=== PATIENT | female | born 1995 | race Asian ===

== ENCOUNTER 2016-11-25 13:06 | Emergency (ER) | payer OTHER ==
[2016-11-25 13:21] VITALS: BP 108/71
--- NOTE | 2016-11-25 13:56 | UC ---
Abdominal Pain Female HPI - HPI Summary HPI Summary: PERIOD FOUR DAYS AGO; BEGAN HAVING (RLQ) ABDOMINAL PAIN THREE DAYS AGO. NO FEVER. STILL HAS APPENDIX. NO HISTORY OF KNOWN OVARIAN CYSTS. HAD SMALL EPIDODE OF LOW BACK PAIN FOUR DAYS AGO. (RLQ) ABDOMINAL PAIN WORSENING TODAY. 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 Negative: Diaphoresis, Fever, Cough, Constipation, Blood in Stool, Urinary Symptoms, Decreased Appetite, Vaginal Bleeding, Vomiting, Diarrhea - Risk Factors Ectopic Risk Factor: Negative Allergies/Adverse Reactions: Allergies Allergy/AdvReac Type Severity Reaction Status Date / Time No Known Allergies Allergy Verified 11/25/16 13:21 Home Medications: Home Medications Desogestrel & Ethinyl Estradio [Juleber 0.15-30 mg-Mcg] 1 tab PO DAILY 11/25/16 [History Confirmed 11/25/16] PMH/Surg Hx/FS Hx/Imm Hx Previously Healthy: Yes - Surgical History Surgical History: None - Family History Known Family History: Negative: Renal Disease - Social History Occupation: Student Lives: Alone Alcohol Use: Occasionally Substance Use Type: None Smoking Status (MU): Never Smoked Tobacco Review of Systems Constitutional: Negative Skin: Negative Eyes: Negative ENT: Negative Respiratory: Negative Cardiovascular: Negative Gastrointestinal: Abdominal Pain Genitourinary: Negative Motor: Negative Neurovascular: Negative Musculoskeletal: Negative Neurological: Negative Psychological: Negative All Other Systems Reviewed And Are Negative: Yes Physical Exam Triage Information Reviewed: Yes Appearance: Well-Appearing, No Pain Distress, Well-Nourished Vital Signs: Initial Vital Signs Temp 95.2 F 11/25/16 13:14 Pulse 108 11/25/16 13:14 Resp 16 11/25/16 13:14 BP 108/71 11/25/16 13:14 Pulse Ox 100 11/25/16 13:14 Vital Signs Reviewed: Yes Eye Exam: Normal ENT Exam: Normal ENT: Positive: Normal ENT inspection, TMs normal Dental Exam: Normal Neck exam: Normal Neck: Positive: Supple, Nontender, No Lymphadenopathy Respiratory Exam: Normal Respiratory: Positive: Chest non-tender, Lungs clear, Normal breath sounds, No respiratory distress, No accessory muscle use Cardiovascular Exam: Normal Cardiovascular: Positive: RRR, No Murmur, Pulses Normal Abdomen Description: Positive: No Organomegaly, Soft, McBurney's Point Tenderness. Negative: Nontender - RLQ, CVA Tenderness (R), CVA Tenderness (L) Musculoskeletal Exam: Normal Neurological Exam: Normal Psychological Exam: Normal Skin Exam: Normal Abd Pain Female Course/Dx - Course Course Of Treatment: PATIENT REFUSED AMBULANCE AND ELECTED TO GO TO EMERGENCY DEPARTMENT BY PRIVATE CAR. - Differential Dx/Diagnosis Differential Diagnosis: Appendicitis, Gall Bladder Disease, Ovarian Cyst, Pelvic Inflammatory Disease, Urinary Tract Infection Provider Diagnoses: RLQ ABDOMINAL PAIN - Physician Notification/Consults Instructed by Provider To: MD Will See In ED Discharge - Discharge Plan Condition: Stable Disposition: TRANS HIGHER LVL OF CARE FAC Patient Education Materials: Abdominal Pain (ED) Referrals: [facility] [place] PHYSICIAN REFERRAL [Outside] No Primary Care Phys,NOPCP [Primary Care Provider] - Additional Instructions: YOUR URINE TEST WAS NEGATIVE FOR LEUKOCYTES AND NEGATIVE FOR . YOUR ( RLQ) ABDOMINAL PAIN REQUIRES A HIGHER LEVEL OF EVALUATION. YOU HAVE REFUSED THE OFFER OF AMBULANCE TRANSPORT AND HAVE ELECTED TO GO TO THE EMERGENCY DEPARTMENT BY PRIVATE CAR. YOU ARE ADVISED TO PROCEED SAFELY, BUT DIRECTLY TO THE EMERGENCY DEPARTMENT FOR CONTINUED EVALUATION.
== END 2016-11-25 13:49 | disposition short-term general hospital (02) ==
LOC: UCEAST 13:06
DX: R10.31 Right lower quadrant pain (principal); R11.0 Nausea; Z32.02 Encounter for pregnancy test, result negative
CPT/HCPCS: 81003; 84702; 99201; G0463

== ENCOUNTER 2016-11-25 14:06 | Emergency (ER) | payer OTHER ==
[2016-11-25] MEDS ORDERED: Ondansetron INJ* 2 MG/ML VIAL IV ONE (15:46)
[2016-11-25] MEDS ORDERED: Acetaminophen TAB* 325 MG PO ONE ×2 (15:46→20:53)
[2016-11-25 16:38] LABS: Hematocrit 41 % (35-47); Mean Corpuscular HGB Conc 34 g/dl (31-36); Mean Corpuscular Hemoglobin 30 pg (27-31); Mean Corpuscular Volume 89 fL (80-97); Mean Platelet Volume 8 um3 (7.4-10.4); Red Cell Distribution Width 13 % (10.5-15); White Blood Count 9.9 10^3/ul (3.5-10.8)
[2016-11-25 16:53] LABS: ALT 8 U/L (7-52); AST 15 U/L (13-39); Albumin 4.3 g/dL (3.2-5.2); Alkaline Phosphatase 56 U/L (34-104); Anion Gap 10 mmol/L (2-11); BUN/Creatinine Ratio 13.3 (8-20); Blood Urea Nitrogen 8 mg/dL (6-24); C Reactive Protein 118.33 mg/L (< 5.00); CO2 Carbon Dioxide 23 mmol/L (22-32); Calcium 9.6 mg/dL (8.6-10.3); Chloride 102 mmol/L (101-111); EGFR African American 162.3 (>60); EGFR Non-African American 126.2 (>60); Globulin 3.4 g/dL (2-4); Glucose 100 mg/dL (70-100); Lipase 16 U/L (11.0-82.0); Potassium 3.8 mmol/L (3.5-5.0); Sodium 135 mmol/L (133-145); Total Protein 7.7 g/dL (6.4-8.9)
[2016-11-25 17:18] LABS: Urine Bilirubin Negative (Negative); Urine Glucose Negative (Negative); Urine Nitrite Negative (Negative)
[2016-11-25 17:19] LABS: Urine Bacteria Absent (Absent)
[2016-11-25] MEDS ORDERED: Iohexol 300* (CONTRAST) 10 ML SDV IV ONE (17:30)
--- NOTE | 2016-11-25 19:17 | RAD ---
INDICATION: RIGHT lower quadrant pain and tenderness. Hematuria. Currently menstruating. COMPARISON: No relevant prior exams available on the [facility] PACS. TECHNIQUE: Multidetector CT images were obtained from the lung bases to the ischial tuberosities with 76 mL Omnipaque 300 IV and oral contrast. Multiplanar reformation. REPORT: Unremarkable visualized inferior thorax. The liver, gallbladder, pancreas, and spleen are unremarkable. No CT abnormality of the upper GI. The distal approximate 7 cm of the ileum extending to the ileocecal valve is remarkable for mild mural thickening with extension to involve the medial aspect of the cecum.. No associated perienteric inflammatory change. Unremarkable infra cecal appendix. No additional regions of bowel mural thickening. Negative for ascites, free air, hernias. Normal adrenal glands. Unremarkable kidneys with symmetric nephrograms and pyelograms. Unremarkable nondilated ureters and partially distended urinary bladder as well as the retroverted uterus and adnexal regions. Multiple RIGHT lower quadrant mesenteric lymph nodes measuring up to 0.8 cm short axis diameter. Unremarkable abdominal aorta and iliac arteries. Physiologic partial distention of the IVC. Negative for findings of inflammatory arthropathy at the sacroiliac joints or lumbar sacral spine. No suspicious osseous lesions within the [id number]. IMPRESSION: 1. Nonspecific mild mural thickening of the distal and terminal ileum as well as contiguous involvement of the cecum. Adjacent appendix is normal. Negative for resulting bowel obstruction. Negative for significant perienteric inflammatory change or perienteric abscess. Associated mildly prominent RIGHT lower quadrant lymph nodes. Consider infectious ileitis as well as inflammatory bowel disease. 2. Negative for ascites. 3. Negative for obstructive uropathy.
[2016-11-26 01:17] VITALS: BP 109/68
--- NOTE | 2016-11-26 07:17 | RAD ---
INDICATION: Right adnexal tenderness. COMPARISON: Comparison is made with a prior CT of the abdomen and pelvis from November 25, 2016. TECHNIQUE: Multiple real-time transvaginal images of the pelvis were obtained. FINDINGS: The uterus is retroverted and normal in size shape and echogenicity. The uterus measured 6.6 x 2.9 x 3.6 cm. The endometrial echo measured 0.6 cm in thickness. The right ovary measured 2.8 x 2.2 x 2.3 cm. The left ovary measured 3.8 x 2.6 x 1.8 cm. There is vascular flow within both ovaries. No free intraperitoneal fluid is seen. IMPRESSION: NEGATIVE EXAM.
--- NOTE | 2016-11-29 08:47 | ED ---
Salud Medina Thomas, scribed for Won Willett MD on 11/25/16 at 1550 . Abdominal Pain/Female <EricRadha - Last Filed: 11/25/16 21:40> - HPI Summary HPI Summary: The pt is a 21 y/o F referred from [facility] and c/o intermittent sharp RLQ pain that began yesterday at 08:00. The pt rates the pain 4/10. The pain is aggravated by crouching down and is alleviated by nothing. The patient has treated the pain with Naproxen yesterday but her pain was not relieved. Pt additionally c/o nausea, dizziness, and anorexia. Pt denies vomiting, dysuria, and hematuria. Her last meal was pancakes this AM at 09:00. She is on control and she has not missed any doses. She was at [facility] and had a UA there that was negative for . PMHx: previously healthy. PSHx: none. SHx: no smoking, occasional alcohol use, no illicit drug use. She is a student at [employer]. She is accompanied by her boyfriend. She is currently menstruating and her period began on 11/22/16. - History of Current Complaint Hx Obtained From: Patient, Family/Parer - boyfriend present Hx Last Menstrual Period: Currentlyt menstruating Onset/Duration: Sudden Onset, Lasting Days - onset yesterday at 08:00, Still Present Timing: Intermittent Episode Lasting Severity Currently: Moderate Pain Intensity: 4 Pain Scale Used: 0-10 Numeric Location: Discrete At: RLQ Aggravating Factor(s): Other: - Crouching Alleviating Factor(s): Nothing, Other: - NOT alleviated by Naproxen Associated Signs and Symptoms: Positive: Dizzy, Nausea, Other: - POS: anorexia; NEG: dysuria, hematuria. Negative: Fever, Vomiting <Won Willett - Last Filed: 11/25/16 23:23> - History of Current Complaint Chief Complaint: EDAbdPain Stated Complaint: RT SIDE ABDOM PAIN Time Seen by Provider: 11/25/16 15:28 Allergies/Adverse Reactions: Allergies Allergy/AdvReac Type Severity Reaction Status Date / Time No Known Allergies Allergy Verified 11/25/16 13:21 PMH/Surg Hx/FS Hx/Imm Hx Previously Healthy: No Endocrine/Hematology History: Denies: Hx Diabetes, Hx Thyroid Disease Cardiovascular History: Denies: Hx Hypertension Respiratory History: Denies: Hx Asthma, Hx Chronic Obstructive Pulmonary Disease (COPD) GI History: Denies: Hx Ulcer - Surgical History Surgery Procedure, Year, and Place: None. Infectious Disease History: No Infectious Disease History: Denies: Hx Hepatitis, Hx Human Immunodeficiency Virus (HIV), History Other Infectious Disease, Traveled Outside the [place] in Last 30 Days - Family History Known Family History: Negative: Renal Disease - Social History Alcohol Use: Occasionally Substance Use Type: Reports: None Smoking Status (MU): Never Smoked Tobacco <Won Willett - Last Filed: 11/25/16 23:23> Review of Systems Negative: Fever, Chills Negative: Erythema - eyes Negative: Sore Throat Negative: Chest Pain Negative: Shortness Of Breath, Cough Positive: Abdominal Pain - RLQ, onset yesterday, intermittent, Nausea, Other - POS: anorexia. Negative: Vomiting Negative: dysuria, hematuria Negative: Myalgia, Edema - leg Negative: Rash Neurological: Other - POS: dizziness All Other Systems Reviewed And Are Negative: Yes <Won Willett - Last Filed: 11/25/16 23:23> Physical Exam Vital Signs On Initial Exam: Initial Vitals Temp Pulse Resp BP Pulse Ox 97.6 F 105 14 136/70 99 11/25/16 14:11/25/16 14:09 11/25/16 14:09 11/25/16 14:09 11/25/16 14:09 Abdomen Description: Positive: Other: - PELVIC EXAM Vulva: clear and healthy - no lesions, no d/c Vaginal Canal: scant bloody d/c Cervix observed - os patent - no d/c Rt adnexal space w/ TTP - no mass palpated Lt adnexal space NTTP Neg CMT Performed by BENSON HORN <Radha Reyes - Last Filed: 11/25/16 21:40> - Summary Physical Exam Summary: Constitutional: Well-developed, Well-nourished, Alert. (-) Distressed Skin: Warm, Dry HENT: Normocephalic; Atraumatic Eyes: Conjunctiva normal Neck: Musculoskeletal ROM normal neck. (-) JVD, (-) Stridor, (-) Tracheal deviation Cardio: Rhythm regular, rate normal, Heart sounds normal; Intact distal pulses; The pedal pulses are 2+ and symmetric. Radial pulses are 2+ and symmetric. (-) Murmur Pulmonary/Chest wall: Effort normal. (-) Respiratory distress, (-) Wheezes, (-) Rales Abd: She has RLQ tendrness and R CVA tenderness. Soft, (-) Distension, (-) Guarding, (-) Rebound Musculoskeletal: (-) Edema Lymph: (-) Cervical adenopathy Neuro: Alert, Oriented x3 Psych: Mood and affect Normal Triage Information Reviewed: Yes Vital Signs On Initial Exam: Initial Vitals Temp Pulse Resp BP Pulse Ox 97.6 F 105 14 136/70 99 11/25/16 14:09 11/25/16 14:11/25/16 14:11/25/16 14:11/25/16 14:09 Vital Signs Reviewed: Yes <Won Willett - Last Filed: 11/25/16 23:23> Diagnostics - Vital Signs Vital Signs Temp Pulse Resp BP Pulse Ox 11/25/16 19:00 113 97 11/25/16 18:01 109 98 11/25/16 17:00 112 98 11/25/16 16:31 120 121/88 97 11/25/16 16:14 115 98 11/25/16 16:13 109/67 11/25/16 14:09 97.6 F 105 14 136/70 99 - Laboratory Lab Results: Lab Results 11/25/16 11/25/16 11/25/16 Range/Units 16:26 16:26 16:26 WBC 9.9 (3.5-10.8) 10^3/ul RBC 4.60 (4.0-5.4) 10^6/ul Hgb 14.0 (12.0-16.0) g/dl Hct 41 (35-47) % MCV 89 (80-97) fL MCH 30 (27-31) pg MCHC 34 (31-36) g/dl RDW 13 (10.5-15) % Plt Count 192 (150-450) 10^3/ul MPV 8 (7.4-10.4) um3 Neut % (Auto) 82.4 (38-83) % Lymph % (Auto) 10.1 L (25-47) % [place] % (Auto) 6.3 (1-9) % Eos % (Auto) 0.9 (0-6) % Baso % (Auto) 0.3 (0-2) % Absolute Neuts (auto) 8.2 H (1.5-7.7) 10^3/ul Absolute Lymphs (auto) 1.0 (1.0-4.8) 10^3/ul Absolute Monos (auto) 0.6 (0-0.8) 10^3/ul Absolute Eos (auto) 0.1 (0-0.6) 10^3/ul Absolute Basos (auto) 0 (0-0.2) 10^3/ul Absolute Nucleated RBC 0 10^3/ul Nucleated RBC % 0 Sodium 135 (133-145) mmol/L Potassium 3.8 (3.5-5.0) mmol/L Chloride 102 (101-111) mmol/L Carbon Dioxide 23 (22-32) mmol/L Anion Gap 10 (2-11) mmol/L BUN 8 (6-24) mg/dL Creatinine 0.60 (0.51-0.95) mg/dL Est GFR ( Amer) 162.3 (>60) Est GFR (Non-Af Amer) 126.2 (>60) BUN/Creatinine Ratio 13.3 (8-20) Glucose 100 (70-100) mg/dL Lactic Acid 0.8 (0.5-2.0) mmol/L Calcium 9.6 (8.6-10.3) mg/dL Total Bilirubin 0.40 (0.2-1.0) mg/dL AST 15 (13-39) U/L ALT 8 (7-52) U/L Alkaline Phosphatase 56 (34-104) U/L C-Reactive Protein 118.33 H (< 5.00) mg/L Total Protein 7.7 (6.4-8.9) g/dL Albumin 4.3 (3.2-5.2) g/dL Globulin 3.4 (2-4) g/dL Albumin/Globulin Ratio 1.3 (1-3) Lipase 16 (11.0-82.0) U/L Beta HCG, Quant < 0.60 mIU/mL Urine Color Urine Appearance Urine pH (5-9) Ur Specific [place] (1.010-1.030) Urine Protein (Negative) Urine Ketones (Negative) Urine Blood (Negative) Urine Nitrate (Negative) Urine Bilirubin (Negative) Urine Urobilinogen (Negative) Ur Leukocyte Esterase (Negative) Urine WBC (Auto) (Absent) Urine RBC (Auto) (Absent) Ur Squamous Epith Cells (Absent) Urine Bacteria (Absent) Urine Glucose (Negative) 11/25/16 Range/Units 16:52 WBC (3.5-10.8) 10^3/ul RBC (4.0-5.4) 10^6/ul Hgb (12.0-16.0) g/dl Hct (35-47) % MCV (80-97) fL MCH (27-31) pg MCHC (31-36) g/dl RDW (10.5-15) % Plt Count (150-450) 10^3/ul MPV (7.4-10.4) um3 Neut % (Auto) (38-83) % Lymph % (Auto) (25-47) % [place] % (Auto) (1-9) % Eos % (Auto) (0-6) % Baso % (Auto) (0-2) % Absolute Neuts (auto) (1.5-7.7) 10^3/ul Absolute Lymphs (auto) (1.0-4.8) 10^3/ul Absolute Monos (auto) (0-0.8) 10^3/ul Absolute Eos (auto) (0-0.6) 10^3/ul Absolute Basos (auto) (0-0.2) 10^3/ul Absolute Nucleated RBC 10^3/ul Nucleated RBC % Sodium (133-145) mmol/L Potassium (3.5-5.0) mmol/L Chloride (101-111) mmol/L Carbon Dioxide (22-32) mmol/L Anion Gap (2-11) mmol/L BUN (6-24) mg/dL Creatinine (0.51-0.95) mg/dL Est GFR ( Amer) (>60) Est GFR (Non-Af Amer) (>60) BUN/Creatinine Ratio (8-20) Glucose (70-100) mg/dL Lactic Acid (0.5-2.0) mmol/L Calcium (8.6-10.3) mg/dL Total Bilirubin (0.2-1.0) mg/dL AST (13-39) U/L ALT (7-52) U/L Alkaline Phosphatase (34-104) U/L C-Reactive Protein (< 5.00) mg/L Total Protein (6.4-8.9) g/dL Albumin (3.2-5.2) g/dL Globulin (2-4) g/dL Albumin/Globulin Ratio (1-3) Lipase (11.0-82.0) U/L Beta HCG, Quant mIU/mL Urine Color Straw Urine Appearance Clear Urine pH 5 (5-9) Ur Specific [place] 1.020 (1.010-1.030) Urine Protein 1+(30 mg/dl) H (Negative) Urine Ketones Negative (Negative) Urine Blood 1+ H (Negative) Urine Nitrate Negative (Negative) Urine Bilirubin Negative (Negative) Urine Urobilinogen Negative (Negative) Ur Leukocyte Esterase Negative (Negative) Urine WBC (Auto) Absent (Absent) Urine RBC (Auto) Trace(0-2/hpf) (Absent) Ur Squamous Epith Cells Present H (Absent) Urine Bacteria Absent (Absent) Urine Glucose Negative (Negative) Result Diagrams: 11/25/16 16:26 11/25/16 16:26 Lab Statement: Any lab studies that have been ordered have been reviewed, and results considered in the medical decision making process. <Radha Reyes - Last Filed: 11/25/16 21:40> - Vital Signs Vital Signs Temp Pulse Resp BP Pulse Ox 11/25/16 14:09 97.6 F 105 14 136/70 99 - Laboratory Result Diagrams: 11/25/16 16:26 11/25/16 16:26 Lab Statement: Any lab studies that have been ordered have been reviewed, and results considered in the medical decision making process. - CT CT Abd/Pel CT Interpretation: Positive (See Comments) - CT Abd/Pel shows 1. Nonspecific mild mural thickening of the distal and terminal ileum as well as contiguous involvement of the cecum. Adjacent appendix is normal. Negative for resulting bowel obstruction. Negative for significant perienteric inflammatory change or perienteric abscess. Associated mildly prominent RIGHT lower quadrant lymph nodes. Consider infectious ileitis as well as inflammatory bowel disease. 2. Negative for ascites. 3. Negative for obstructive uropathy. ED Physician has read this report and agrees. CT Interpretation Completed By: Radiologist - Additional Comments Diagnostic Additional Comments: US Pelvis/Transvaginal. Interpreted by radiologist. Impression: no ovarian torsion, color flow with appropriate arterial and venous waveforms, no free fluid, normal uterus, endometrial stripe complex 6cm thick. ED Physician has read this report and agrees. <Won Willett - Last Filed: 11/25/16 23:23> Re-Evaluation - Re-Evaluation First Eval Re-Evaluation Time: 19:38 Change: Unchanged Comment: The patient is still in pain. <Won Willett - Last Filed: 11/25/16 23:23> Abdominal Pain Fem Course/Dx <Radha Reyes - Last Filed: 11/25/16 21:40> - Course Course Of Treatment: The pt is a 21 y/o F referred from [facility] and c/o intermittent sharp RLQ pain that began yesterday at 08:00. The pt rates the pain 4/10. The pain is aggravated by crouching down and is alleviated by nothing. The patient has treated the pain with Naproxen yesterday but her pain was not relieved. Pt additionally c/o nausea, dizziness, and anorexia. Pt denies vomiting, dysuria, and hematuria. Her last meal was pancakes this AM at 09:00. She is on control and she has not missed any doses. She was at [facility] and had a UA there that was negative for . PMHx: previously healthy. PSHx: none. SHx: no smoking, occasional alcohol use, no illicit drug use. She is a student at [employer]. She is accompanied by her boyfriend. She is currently menstruating and her period began on 11/22/16. In the ED course the patient was given acetaminophen and Zofran. At re-evaluation at 19:37, the patient is still in pain. Bloodwork shows CRP 118.33. UA shows 1+ protein and 1 + blood. CT Abd/Pel shows 1. Nonspecific mild mural thickening of the distal and terminal ileum as well as contiguous involvement of the cecum. Adjacent appendix is normal. Negative for resulting bowel obstruction. Negative for significant perienteric inflammatory change or perienteric abscess. Associated mildly prominent RIGHT lower quadrant lymph nodes. Consider infectious ileitis as well as inflammatory bowel disease. 2. Negative for ascites. 3. Negative for obstructive uropathy. The patient will be signed out from Dr. Willett to Dr. Howe at shift change pending imaging. US Pelvis/Transvaginal reveals no ovarian torsion, color flow with appropriate arterial and venous waveforms, no free fluid, normal uterus, endometrial stripe complex 6cm thick. ED Physician has read this report and agrees. The patient is diagnosed with terminal lymphadenopathy and terminal ileitis. She will follow up with GI in 2-3 days. The patient has refused to take narcotic pain medication while in the ED up to this point, and I do not believe that she will take it if she is prescribed them. Therefore, she was instructed to take Tylenol as needed for the pain. She was given a school note as well. She will be discharged home and is stable. <Won Willett - Last Filed: 11/25/16 23:23> - Diagnoses Provider Diagnoses: Abdominal lymphadenopathy, Terminal ileitis Discharge <Radha Reyes - Last Filed: 11/25/16 21:40> <Won Willett - Last Filed: 11/25/16 23:23> - Discharge Plan Condition: Stable Disposition: HOME Patient Education Materials: Lymphadenopathy (ED) Forms: *School Release [facility] - Randall Perez MD [Medical Doctor] - 2 Days Additional Instructions: Follow up with Dr. Randall Perez, a obgyn specialist, in 2-3 days. Take Tylenol as needed for the pain. Return to the emergency department for new or worsening symptoms. The documentation as recorded by the Salud aburto Thomas accurately reflects the service I personally performed and the decisions made by me, Won Willett MD.
== END 2016-11-25 23:26 | disposition home or self-care (01) ==
LOC: ED 14:06
DX: R59.0 Localized enlarged lymph nodes (principal); K50.00 Crohn's disease of small intestine without complications
CPT/HCPCS: 36415; 74177; 76830; 80053; 81003; 81015; 83605; 83690; 84702; 85025; 86140; 87040; 96374; 96375; 99283; A9270-GY; J2405; Q9967

== ENCOUNTER 2017-06-02 08:15 | Emergency (ER) | payer OTHER ==
[2017-06-02 08:28] VITALS: BP 122/79
--- NOTE | 2017-06-02 08:43 | UC ---
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 with 3 days of sore throat doesn't believe she's had fevers but does report chills has been taking ibuprofen to manage the pain no cough nausea vomiting nasal drainage - History of Current Complaint Chief Complaint: UCGeneralIllness Stated Complaint: SORE THROAT Time Seen by Provider: 06/02/17 08:33 Hx Obtained From: Patient Hx Last Menstrual Period: Currentlyt menstruating ?: No Onset/Duration: Sudden Onset, Lasting Days - 3 Severity: Moderate Pain Intensity: 8 Pain Scale Used: 0-10 Numeric Cough: None Associated Signs & Symptoms: Positive: Negative - Allergies/Home Medications Allergies/Adverse Reactions: Allergies Allergy/AdvReac Type Severity Reaction Status Date / Time No Known Allergies Allergy Verified 06/02/17 08:28 PMH/Surg Hx/FS Hx/Imm Hx Previously Healthy: Yes - Surgical History Surgical History: None Surgery Procedure, Year, and Place: None. - Family History Known Family History: Negative: Renal Disease - Social History Occupation: Student Lives: Dormitory/Roommates Alcohol Use: Occasionally Substance Use Type: None Smoking Status (MU): Never Smoked Tobacco Review of Systems Constitutional: Chills Skin: Negative Eyes: Negative ENT: Sore Throat Respiratory: Negative Cardiovascular: Negative Gastrointestinal: Negative Genitourinary: Negative Motor: Negative Neurovascular: Negative Musculoskeletal: Negative Neurological: Negative Psychological: Negative Is Patient Immunocompromised?: No All Other Systems Reviewed And Are Negative: Yes Physical Exam Triage Information Reviewed: Yes Appearance: Well-Appearing, No Pain Distress, Well-Nourished Vital Signs: Initial Vital Signs Temp 97.3 F 06/02/17 08:25 Pulse 89 06/02/17 08:25 Resp 18 06/02/17 08:25 BP 122/79 06/02/17 08:25 Pulse Ox 100 06/02/17 08:25 Vital Signs Reviewed: Yes Eye Exam: Normal Eyes: Positive: Conjunctiva Clear ENT Exam: Normal ENT: Positive: Normal ENT inspection, Hearing grossly normal, Pharynx normal, TMs normal, Uvula midline. Negative: Nasal congestion, Nasal drainage, Tonsillar swelling, Tonsillar exudate, Trismus, Muffled voice, Hoarse voice, Dental tenderness, Sinus tenderness Dental Exam: Normal Neck exam: Normal Neck: Positive: Supple, Nontender, No Lymphadenopathy Respiratory Exam: Normal Respiratory: Positive: Chest non-tender, Lungs clear, Normal breath sounds, No respiratory distress, No accessory muscle use Cardiovascular Exam: Normal Cardiovascular: Positive: RRR, No Murmur, Pulses Normal, Brisk Capillary Refill Musculoskeletal Exam: Normal Musculoskeletal: Positive: Strength Intact, ROM Intact, No Edema Neurological Exam: Normal Neurological: Positive: Alert, Muscle Tone Normal Psychological Exam: Normal Skin Exam: Normal Diagnostics - Laboratory Diagnostic Studies Completed/Ordered: RST (-) Throat Pain/Nasal Course/Dx - Course Course Of Treatment: Rest increase fluids Tylenol ibuprofen throat sprays follow with [facility] when necessary - Differential Dx/Diagnosis Provider Diagnoses: Viral pharyngitis Discharge - Discharge Plan Condition: Stable Disposition: HOME Patient Education Materials: Pharyngitis (ED), Viral Syndrome (ED) Referrals: [facility] [Primary Care Provider] - If Needed
== END 2017-06-02 08:55 | disposition home or self-care (01) ==
LOC: UCEAST 08:15
DX: J02.8 Acute pharyngitis due to other specified organisms (principal); R68.83 Chills (without fever)
CPT/HCPCS: 87651; 99211; G0463

== ENCOUNTER 2019-05-30 09:16 | Emergency (ER) | payer BC, OTHER ==
--- OUTSIDE RECORDS SUMMARY | 2019-05-30 09:26 | XMS REPORT | Continuity of Care Document ---
:1995 Author Organization [facility] Address [address] [place] [address] Phone Care Team Providers Name Role Phone Zoran OCC MED PHYSICIANXenia Unavailable Unavailable Allergies, Adverse Reactions, Alerts Substance Reaction Status No Known Allergies Active Medications Medication Instructions Dosage Effective Dates Status Comments (start - stop) Apri 0.15 mg-0.03 TAKE 1 TABLET BY - Active mg tablet MOUTH EVERY DAY Apri 0.15 mg-0.03 TAKE 1 TABLET BY - No Longer mg tablet MOUTH EVERY DAY Active Problems Condition Effective Dates (start - Clinical Status Comments stop) Encounter for ot general cnsl - and advice on contraception Encounter for surveillance of contraceptive pills Encounter for surveillance of contraceptive pills Encounter for ot general cnsl - and advice on contraception Encntr screen for infections w sexl mode of transmiss Encounter for surveillance of contraceptive pills 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 STI OFFICE/OUTPATIENT VISIT, EST MED SERV, [place]/[facility]/HOLIDAY Results Test Name Date and Time Measure Units Reference Range Abnormal Flag Status Comments No information Advance Directives Directive Yes / No Effective Date File Name No information Encounters Encounter Practice Location Reason(s) Diagnoses Date Provider Providers Description For Visit Copied on Encounter OFFICE/OUTPA [facility] Encounter for oth b-0 [place] TIENT VISIT, [facility] [place] Control general cnsl and X[place]. 620 EST Of Greater Renewal advice on [address] [place], ([facility], [address] complaint) [place], [address], , [facility] surveillance of [place]. [place], [place], contraceptive [id number], pills [place] tel:[phone] [facility] Encounter for May- [facility] Referring [facility] [place] surveillance of X[place]. 620 Provider: Of Greater contraceptive [address] [place], pills St, [place], [place], [address] [place], [address], [address], [address] [place]. St, [place], [place], [place], [id number], [place], [address]. [place] tel:[phone] [facility] Encounter for oth b-2 [place] Referring [facility] [place] general cnsl and 3 [place]. [address] W Provider: Of Greater advice on [address], [place], contraceptionEncn [place], [place], [place] [address] [place] [place] [id number]. M, [address] , [facility] infections w sexl tel:[phone], [place], [place], mode of [id number] [place], [id number], [place], [address]. [place] r for tel:+[phone] tel:[phone] surveillance of [phone] contraceptive pillsEncntr for jewelsmith exam (general) (routine) w/o abn findings [facility] Encounter for Apr- [place] Referring [facility] [place] surveillance of 2-201 [place]. [address] Provider: Of Greater contraceptive [address], [place], pillsEncounter [place], [place], [place] [address] for oth general [phone]. M, [address] [facility] cnsl and advice tel:[phone] [place], [place], on contraception [id number] [place], [id number], [place], [address]. [place] tel:+60 tel:[phone] [facility] Encounter for Mar-0 [facility] [place] test, Of Greater result 7 [place], negativeEncounter [address] for surveillance [facility] of contraceptive [place], [place], pills [id number], [place] tel:[phone] [facility] Encounter for Mar-3 [facility] [place] initial Carmen. [address] Of Greater prescription of [address] [place] [place], [place], contraceptive [place], [place], [address] pills [id number]. [facility] tel:[phone] [place], [place], [id number], [place] tel:[phone] [facility] Irregular Feb-0 [facility] [place] menstruation, [address]. [address] Of Greater unspecified [address] [place], , [place], [address] [place], [address]. [facility] tel:[phone] [place], [place], [id number], [place] tel:[phone] Family History Family Member Diagnosis Age At Onset 1st degree relative No hx of coronary heart disease (female <65, male <55) 1st degree relative No hx of venous thromboembolism 1st degree relative No hx of cancer of breast, colon, endometrium or ovary Immunizations Vaccine Date Status Comments No information Payers Payer name Insurance type Covered republican ID Authorization(s) Exchange [facility] [id number] Social History Type Description Quantity Date Captured Comments Alcohol Use Details Unknown Caffeine Use Details Unknown Tobacco Use Status Current non-smoker Smoking Status Never smoker Non-Smoking Tobacco : No Details Available : No Details Available 2019 Use Details Sex Female Vital Signs Date / Height Weight BMI Pulse Blood Temperature Respiratory Body Head BMI Pulse Inhaled Time: Rate Pressure Rate Surface Circumference percentile Ox Ox Area 64.00 125.00 21.4 112/70 -2020 in lbs 6 mm[Hg] 6:48 kg/m PM eter (2) Chief Complaint And Reason For Visit Most recent encounter only, dated '04/22/2019 18:30'. Control Renewal (chief complaint) Reason For Referral Reason For Referral No information Plan Of Treatment Date Type Action Status No information History Of Present Illness Encounter Date Complaint History Of Present Illness No information Functional Status Date Functional Assessment No information Medications Administered Medication Instructions Dosage Effective Dates (start - stop) Status Comments No information Instructions Date Instruction Additional Information No information Assessments Type Assessment Date assessment Encounter for oth general cnsl and advice on contraception 2019 assessment Encounter for surveillance of contraceptive pills Goals Health Concern Goal Type Priority Status Date No information Medical Equipment Description Device [place] Device Identifier Effective Dates (start - stop ) Status No information Mental Status Date Cognitive Assessment Normal Orientation Health Concerns Observation Date No information Concern Status Date No information
--- NOTE | 2019-05-30 09:46 | ED ---
Abdominal Pain/Female - HPI Summary HPI Summary: 24-year-old female presents to the emergency department today complaining of 2 out of 10 diffuse lower abdominal pain and diarrhea 3 days. Patient states her pain is a cramping sensation. Patient's last menstrual cycle is approximately 2 weeks ago and regular. Patient is on control via oral contraception. Patient is sexually active with same sexual partner. Patient endorses 2-3 bouts of diarrhea daily 3 days with no vomiting. Patient denies blood per rectum or fever. Patient states her pain is reproducible with palpation. Patient is otherwise well and denies fever, chest pain, shortness of breath, nausea, vomiting, rash. - History of Current Complaint Chief Complaint: EDAbdPain Stated Complaint: ABD PAIN PER PT Time Seen by Provider: 05/30/19 09:29 Hx Obtained From: Patient Hx Last Menstrual Period: Currentlyt menstruating Onset/Duration: Gradual Onset Timing: Constant Severity Initially: Mild Severity Currently: Mild Pain Intensity: 3 Pain Scale Used: 0-10 Numeric Location: Diffuse Radiates: No Character: Cramping Associated Signs and Symptoms: Positive: Diarrhea. Negative: Fever, Blood in Stool, Vaginal Bleeding, Vaginal Discharge, Vomiting Allergies/Adverse Reactions: Allergies Allergy/AdvReac Type Severity Reaction Status Date / Time peach Allergy Swelling Verified 05/30/19 09:21 Of Face,Lips,& Throat Home Medications: Home Medications desogestreL-ethinyl estradioL [Enskyce 28 Tablet] 1 tab PO DAILY 05/30/19 [ History Confirmed 05/30/19] PMH/Surg Hx/FS Hx/Imm Hx Endocrine/Hematology History: Denies: Hx Diabetes, Hx Thyroid Disease Cardiovascular History: Denies: Hx Hypertension Respiratory History: Denies: Hx Asthma, Hx Chronic Obstructive Pulmonary Disease (COPD) GI History: Denies: Hx Ulcer - Surgical History Surgery Procedure, Year, and Place: None. Infectious Disease History: No Infectious Disease History: Denies: Hx Hepatitis, Hx Human Immunodeficiency Virus (HIV), History Other Infectious Disease, Traveled Outside the [place] in Last 30 Days - Family History Known Family History: Negative: Renal Disease - Social History Alcohol Use: Occasionally Substance Use Type: Reports: Marijuana Smoking Status (MU): Never Smoked Tobacco Review of Systems Constitutional: Negative Eyes: Negative ENT: Negative Cardiovascular: Negative Respiratory: Negative Positive: Abdominal Pain, Diarrhea Genitourinary: Negative Musculoskeletal: Negative Skin: Negative Neurological/Mental Status: Negative Psychological: Normal All Other Systems Reviewed And Are Negative: Yes Physical Exam - Summary Physical Exam Summary: Patient is in no acute distress. Inspection of the abdomen reveals no ecchymosis or masses. Auscultation reveals normal active bowel sounds. Palpation of the lower abdomen reveals mild tenderness with no guarding or rigidity. No rebound tenderness. There is tenderness at McBurney's point however there is negative psoas, Rovsing, obturator sign. Negative Collins's sign Triage Information Reviewed: Yes Vital Signs On Initial Exam: Initial Vitals Temp Pulse Resp BP Pulse Ox 98.4 F 80 16 129/66 100 05/30/19 09:19 05/30/19 09:19 05/30/19 09:19 05/30/19 09:19 05/30/19 09:19 Vital Signs Reviewed: Yes Appearance: Positive: Well-Appearing, No Pain Distress, Well-Nourished Skin: Positive: Warm, Skin Color Reflects Adequate Perfusion Eyes: Positive: EOMI, ALISE ENT: Positive: Hearing grossly normal Respiratory/Lung Sounds: Positive: Clear to Auscultation, Breath Sounds Present Cardiovascular: Positive: RRR, S1, S2 Abdomen Description: Positive: No Organomegaly, Soft, McBurney's Point Tenderness. Negative: CVA Tenderness (R), CVA Tenderness (L), Distended, Guarding Bowel Sounds: Positive: Present Musculoskeletal: Positive: Strength/ROM Intact Neurological: Positive: Sensory/Motor Intact, Alert, Oriented to Person Place, Time, Normal Gait, Facial Symmetry, Speech Normal Psychiatric: Positive: Normal, Affect/Mood Appropriate Procedures - Sedation Patient Received Moderate/Deep Sedation with Procedure: No Diagnostics - Vital Signs Vital Signs Temp Pulse Resp BP Pulse Ox 05/30/19 09:19 98.4 F 80 16 129/66 100 - Laboratory Result Diagrams: 05/30/19 09:43 05/30/19 09:43 Lab Statement: Any lab studies that have been ordered have been reviewed, and results considered in the medical decision making process. Abdominal Pain Fem Course/Dx - Course Course Of Treatment: Patient was evaluated in the emergency department today for abdominal pain. Vitals noted and stable. Patient afebrile. Laboratory studies were done which returned showing no significant abnormalities. No evidence of leukocytosis, anemia, or electrolyte disturbance. Patient's physical exam was benign. There appeared to be no acute medical problem requiring intervention at this time. It was discussed that the harm of CT scanning outweighed the benefits at this time. Patient discharged to outpatient follow-up. - Diagnoses Differential Diagnosis: Positive: Appendicitis, Constipation, Ectopic , Ovarian Cyst, Renal Colic Provider Diagnoses: Abdominal pain Discharge ED - Sign-Out/Discharge Documenting (check all that apply): Patient Departure - Discharge Plan Condition: Stable Disposition: HOME Patient Education Materials: Acute Abdominal Pain (ED) Referrals: [facility] [Outside] - 3 Days No Primary Care Phys,NOPCP [Primary Care Provider] - Additional Instructions: You were seen in the emergency department today for abdominal pain. There is no evidence that your symptoms are due to a life-threatening or infectious process requiring intervention at this time. Please follow up with your primary care provider or manager collection in 3 days for further evaluation and management of your symptoms. Please return to the emergency department immediately if you develop any new or worsening symptoms. - Billing Disposition and Condition Condition: STABLE Disposition: Home - Attestation Statements Provider Attestation: I was available for consult. This patient was seen by the EULALIA. The patient was not presented to, seen by, or examined by me. Binh Teixeira MD
[2019-05-30 10:02] LABS: ABS Lymphocytes 1.9 10^3/ul (1.0-4.8); ABS Monocytes 0.3 10^3/ul (0-0.8); ABS Neutrophils 2.4 10^3/ul (1.5-7.7); Hematocrit 38 % (35-47); Hemoglobin 13.3 g/dL (12.0-16.0); Lymphocyte % 40.3 %; Mean Corpuscular HGB Conc 35 g/dL (31-36); Mean Corpuscular Hemoglobin 31 pg (27-31); Mean Corpuscular Volume 89 fL (80-97); Nucleated Red Blood Cells % 0.1; Platelet Count 253 10^3/uL (150-450); Red Blood Count 4.26 10^6 /uL (3.70-4.87); Red Cell Distribution Width 13 % (10-15); White Blood Count 4.6 10^3/uL (3.5-10.8)
[2019-05-30 10:03] LABS: Urine Appearance Clear; Urine Bilirubin Negative (Negative); Urine Blood Negative (Negative); Urine Color Yellow; Urine Glucose Negative (Negative); Urine Ketones Negative (Negative); Urine Nitrite Negative (Negative); Urine Protein Negative (Negative); Urine Specific Gravity 1.013 (1.010-1.030); Urine Urobilinogen Negative (Negative)
[2019-05-30 10:22] LABS: ALT 8 U/L (7-52); AST 13 U/L (13-39); Albumin 4.3 g/dL (3.2-5.2); Albumin/Globulin Ratio 1.6 (1-3); Alkaline Phosphatase 46 U/L (34-104); Anion Gap 7 mmol/L (2-11); BUN/Creatinine Ratio 10.5 (8-20); Blood Urea Nitrogen 6 mg/dL (6-24); C Reactive Protein 4.57 mg/L (<8.01); CO2 Carbon Dioxide 24 mmol/L (22-32); Calcium 9.2 mg/dL (8.6-10.3); Chloride 105 mmol/L (101-111); EGFR African American 157.7 (>60); EGFR Non-African American 130.3 (>60); Globulin 2.7 g/dL (2-4); Glucose 90 mg/dL (70-100); Potassium 3.7 mmol/L (3.5-5.0); Sodium 136 mmol/L (135-145)
[2019-05-30 10:28] LABS: HCG Pregnancy 0.62 mIU/mL
[2019-05-30 11:00] VITALS: BP 113/63
== END 2019-05-30 10:59 | disposition home or self-care (01) ==
LOC: ED 09:16
DX: R10.30 Lower abdominal pain, unspecified (principal); R19.7 Diarrhea, unspecified; Z79.3 Long term (current) use of hormonal contraceptives
CPT/HCPCS: 36415; 80053; 81003; 83690; 84702; 85025; 86140; 99282